=== PATIENT | male | born 1990 | race African-American/Black ===

== ENCOUNTER 2021-11-08 01:24 | Emergency (ER) | payer SELFPAY ==
[~2021-11-08] VITALS: Ht 190.5 cm; Wt 65.3 kg
[2021-11-08 01:26] VITALS: BP 131/75
[2021-11-08] MEDS ORDERED: AMOXICILLIN TRIHYDRATE 250 MG CAPSULE ONE (01:40)
[2021-11-08] MEDS ORDERED: PENI500T PO (01:41)
[2021-11-08] MEDS ORDERED: KETO10TA2 PO (01:41)
[2021-11-08] MEDS ORDERED: AMOXICILLIN TRIHYDRATE 500 MG CAPSULE PO ONE (02:00)
== END 2021-11-08 01:51 | disposition home or self-care (01) ==
LOC: ER 01:29
DX: K04.7 Periapical abscess without sinus (principal)